=== PATIENT | female | born 1975 | race Caucasian/White ===

== ENCOUNTER 2017-09-14 10:19 | Emergency (ER) | payer OTHER ==
[~2017-09-14] VITALS: Ht 162.6 cm; Wt 94.8 kg
--- OUTSIDE RECORDS SUMMARY | ~2017-09-14 | XMS | Clinical Summary ---
Demographics + + + | Address | [address] | | | [place] [address] | + + + | Home Phone | | + + + | Preferred Language | Unknown | + + + | Marital Status | | + + + | Oriental Orthodox Affiliation | NON | + + + | Race | White | + + + | Ethnic Group | Unknown | + + + Author + + + | Organization | Unknown | + + + | Address | Unknown | + + + | Phone | Unavailable | + + + Care Team Providers + +------+ + | Care Baler Name | Role | Phone | + +------+ + PP | Unavailable | + +------+ + Source Comments ELLEN is fully live on both [facility] and [facility] Allergies Not on File Current Medications Not [...] | + + + + + | INFLUENZA VACCINE | | | | | (FLU SHOT) | 7 | | | + + + + + Results Not on filefrom Last 3 Months"
--- OUTSIDE RECORDS SUMMARY | ~2017-09-14 | XMS | Clinical Summary ---
Demographics + + + | Address | [address] | | | [place] [address] | + + + | Home Phone | | + + + | Preferred Language | Unknown | + + + | Marital Status | | + + + | Congregational Affiliation | NON | + + + | Race | White | + + + | Ethnic Group | Unknown | + + + Author + + + | Organization | Unknown | + + + | Address | Unknown | + + + | Phone | Unavailable | + + + Care Team Providers + +------+ + | Care Schedule Planning Manager Name | Role | Phone | + +------+ + PP | Unavailable | + +------+ + Source Comments ELLEN is fully live on both [facility] and [facility] InPatient.[facility]ly [facility] Allergies Not on [...]
[~2017-09-14 10:19] MED LIST: CIPRO500 MG PO; NUVIGIL250 MG PO; SUBOXONE 8 MG-1 EAC1 SL
[2017-09-14] MEDS ORDERED: ZOFRAN ODT4 MG PO (12:52)
[2017-09-14] MEDS ORDERED: FLOMAX0.4 MG PO (12:52)
[2017-09-14] MEDS ORDERED: IBUPROFEN600 MG PO (12:52)
== END 2017-09-14 13:32 | disposition home or self-care (01) ==
LOC: ED 10:19
DX: N20.1 Calculus of ureter (principal); F17.200 Nicotine dependence, unspecified, uncomplicated; Z88.5 Allergy status to narcotic agent; Z88.0 Allergy status to penicillin; Z88.1 Allergy status to other antibiotic agents; Z88.8 Allergy status to other drugs, medicaments and biological substances
CPT/HCPCS: 74176; 80053; 81001; 83690; 84703; 85025; 96374; 96375; 99284; J1885; J2405

== ENCOUNTER 2018-10-31 20:00 | Emergency (ER) | payer OTHER ==
[~2018-10-31] VITALS: Ht 162.6 cm; Wt 93.0 kg
--- OUTSIDE RECORDS SUMMARY | ~2018-10-31 | XMS | Clinical Summary ---
Demographics + + + | Address | [address] | | | [place] [address] | + + + | Home Phone | | + + + | Preferred Language | Unknown | + + + | Marital Status | | + + + | Buddhist Affiliation | NON | + + + | Race | White | + + + | Ethnic Group | Unknown | + + + Author + + + | Organization | Unknown | + + + | Address | Unknown | + + + | Phone | Unavailable | + + + Care Team Providers + +------+ + | Care Personal Companion Name | Role | Phone | + +------+ + PP | Unavailable | + +------+ + Source Comments ELLEN is fully live on both [facility]ulatory and [facility] InPatient.[facility]ly [facility] Allergies Not on File Current Medications Not on file Active Problems Not on file Social History + +-------+ +--------+------+ | Tobacco Use | Types | Packs/Day | Years | Date | | | | | Used | | + +-------+ +--------+------+ | Never Assessed | | | | | + +-------+ +--------+------+ + + + | Sex Assigned at | Date Recorded | | | | + + + | Not on file | | + + + Plan of Treatment + + + + + | Health Maintenance | Due Date | Last Done | Comments | + + + + + | Influenza (Flu) | | | | | vaccination (#1) | 8 | | | + + + + + Results Not on filefrom Last 3 Months"
--- OUTSIDE RECORDS SUMMARY | ~2018-10-31 | XMS | Clinical Summary ---
Demographics + + + | Address | [address] | | | [place] [address] | + + + | Home Phone | | + + + | Preferred Language | Unknown | + + + | Marital Status | | + + + | Moravian Affiliation | NON | + + + | Race | White | + + + | Ethnic Group | Unknown | + + + Author + + + | Organization | Unknown | + + + | Address | Unknown | + + + | Phone | Unavailable | + + + Care Team Providers + +------+ + | Care Inpatient Services Rn Name | Role | Phone | + +------+ + PP | Unavailable | + +------+ + Source Comments ELLEN is fully live on both [facility] Ambulatory and [facility] InPatient.[facility]ly [facility] & [facility] Allergies Not on File Current Medications Not [...]
--- OUTSIDE RECORDS SUMMARY | ~2018-10-31 | XMS | Clinical Summary ---
Demographics + + + | Address | [address] | | | [place] [address] | + + + | Home Phone | | + + + | Preferred Language | Unknown | + + + | Marital Status | Unknown | + + + | Scientologist Affiliation | Unknown | + + + | Race | Unknown | + + + | Ethnic Group | Unknown | + + + Author + + + | Author | [facility] | | | and [place] | + + + | Organization | [facility] | | | and [place] | + + + | Address | Unknown | + + + | Phone | Unavailable | + + + Care Team Providers + +------+ + | Care Bread Oven Operator Name | Role | Phone | + +------+ + PP | Unavailable | + +------+ + Allergies Not on File Current Medications Not [...] | + + + + + | Vaccine: | | | | | Dtap/Tdap/Td (1 - | 7 | | | | Tdap) | | | | + + + + + | Cervical Cancer | | | | | Screening (Pap) | 8 | | | + + + + + | Vaccine: Influenza | | | | | (#1) | 8 | | | + + + + + Results Not on filefrom Last 3 Months"
--- OUTSIDE RECORDS SUMMARY | ~2018-10-31 | XMS | Clinical Summary ---
Demographics + + + | Address | [address] | | | [place] [address] | + + + | Home Phone | | + + + | Preferred Language | Unknown | + + + | Marital Status | Unknown | + + + | Yarsanism Affiliation | Unknown | + + + | Race | Unknown | + + + | Ethnic Group | Unknown | + + + Author + + + | Author | [facility] | | | and [place] | + + + | Organization | [facility] | | | and [place] | + + + | Address | Unknown | + + + | Phone | Unavailable | + + + Care Team Providers + +------+ + | Care Director Of Housing And Energy Services Name | Role | Phone | + [...]
[~2018-10-31 20:00] MED LIST changes: +FLOMAX0.4 MG PO; +IBUPROFEN600 MG PO; +ZOFRAN ODT4 MG PO
--- OUTSIDE RECORDS SUMMARY | 2018-10-31 20:04 | XMS ---
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 Buddy VISIT COUNT (12 MO.) [address] [facility] TOTAL 1 NOTE: Visits indicate total known visits. ED/UCC VISIT TRACKING (12 MO.) 10/31/2018 20:01 [facility] [place] TYPE: Emergency COMPLAINT: - R LEG/ANKLE SWELLING INPATIENT VISIT TRACKING (12 MO.) No inpatient visits to display in this time frame [email or web address]
[2018-10-31] MEDS ORDERED: MACROBID 100 M100 MG PO (22:14)
[2018-10-31] MEDS ORDERED: MAXZIDE 37.5 MG-1 EA PO (22:14)
== END 2018-10-31 22:42 | disposition home or self-care (01) ==
LOC: ED 20:00
DX: R60.0 Localized edema (principal); N39.0 Urinary tract infection, site not specified; F32.9 Major depressive disorder, single episode, unspecified; Z87.891 Personal history of nicotine dependence; Z88.5 Allergy status to narcotic agent; Z88.1 Allergy status to other antibiotic agents; Z88.0 Allergy status to penicillin
CPT/HCPCS: 71046; 80053; 81001; 83880; 84443; 85025; 93971; 99285-25

== ENCOUNTER 2019-09-30 09:10 | Emergency (ER) | payer OTHER ==
[~2019-09-30] VITALS: Ht 162.6 cm; Wt 93.0 kg
[~2019-09-30 09:10] MED LIST changes: +MACROBID 100 M100 MG PO; +MAXZIDE 37.5 MG-1 EA PO
--- OUTSIDE RECORDS SUMMARY | 2019-09-30 09:14 | XMS ---
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 Buddy VISIT COUNT (12 MO.) 2 [facility] TOTAL 2 NOTE: Visits indicate total known visits. ED/UCC VISIT TRACKING (12 MO.) 09/30/2019 09:11 [facility] [place] TYPE: Emergency COMPLAINT: - CHEST PAIN, SOB, L ARM PAIN 10/31/2018 20:01 [facility] [place] TYPE: Emergency COMPLAINT: - R LEG/ANKLE SWELLING DIAGNOSES: - Urinary tract infection, site not specified - Allergy status to other antibiotic agents status - Allergy status to narcotic agent status - Major depressive disorder, single episode, unspecified - Allergy status to penicillin - Personal history of nicotine dependence - Localized edema INPATIENT VISIT TRACKING (12 MO.) No inpatient visits to display in this time frame [id number]
--- NOTE | 2019-09-30 09:51 | EKG ---
[facility] [address] [place] [address] Signed Normal sinus rhythm Right axis deviation Pulmonary disease pattern Incomplete right bundle branch block Abnormal ECG Confirmed by LUCIAN LAINEZ MD ([id number]) on 09/30/2019 9:51:49 AM Electronically Signed By: LUCIAN LAINEZ MD 09/30/19 0951 PATIENT NAME: JANN LEE Electrocardiogram DATE OF : 79 PHYSICIAN: LUCIAN LAINEZ MD REPORT #: [id number] REPORT IS CONFIDENTIAL AND NOT TO BE RELEASED WITHOUT AUTHORIZATION
== END 2019-09-30 13:46 | disposition home or self-care (01) ==
LOC: ED 09:10
DX: R07.9 Chest pain, unspecified (principal); F32.9 Major depressive disorder, single episode, unspecified; F17.200 Nicotine dependence, unspecified, uncomplicated; Z88.5 Allergy status to narcotic agent; Z88.8 Allergy status to other drugs, medicaments and biological substances; Z88.1 Allergy status to other antibiotic agents; Z88.0 Allergy status to penicillin; Z79.899 Other long term (current) drug therapy
CPT/HCPCS: 71045; 80053; 83735; 84484; 85025; 85379; 93005; 93010; 99285-25; 99406

== ENCOUNTER 2022-03-25 13:15 | Emergency (ER) | payer OTHER ==
[~2022-03-25] VITALS: Ht 162.6 cm; Wt 93.0 kg
--- NOTE | ~2022-03-25 | EKG ---
[facility] [address] [facility] [place], [place] [address] Draft EK completed, results pending confirmation PATIENT NAME: ROSAJANN Electrocardiogram DATE OF : 79 PHYSICIAN: PRELIMINARY REPORT #: [id number] REPORT IS CONFIDENTIAL AND NOT TO BE RELEASED WITHOUT AUTHORIZATION
--- OUTSIDE RECORDS SUMMARY | 2022-03-25 13:16 | XMS ---
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 Yuly has no Care Guidelines for this patient. Care History Medical/Surgical 10/03/2019 [facility] - W CALLED PATIENT- LEFT PATIENT A VOICEMAIL. - NO PCP LETTER SENT TO PATIENT. E.DClaudio VISIT COUNT (12 MO.) 1 [facility] TOTAL 1 NOTE: Visits indicate total known visits. ED/UCC VISIT TRACKING (12 MO.) 03/25/2022 13:[address] [facility] [place] TYPE: Emergency COMPLAINT: - CHEST PAIN INPATIENT VISIT TRACKING (12 MO.) No inpatient visits to display in this time frame [id number]
[2022-03-25] MEDS ORDERED: ARMODAFINIL250 MG PO (13:43)
[2022-03-25] MEDS ORDERED: FUROSEMIDE20 MG PO (13:43)
[2022-03-25] MEDS ORDERED: BUPRENORPHINE HC8 MG SL (13:43)
[2022-03-25] MEDS ORDERED: LAMOTRIGINE100 MG PO (13:44)
== END 2022-03-25 14:52 | disposition home or self-care (01) ==
LOC: ED 13:15
DX: R07.9 Chest pain, unspecified (principal); F17.200 Nicotine dependence, unspecified, uncomplicated; Z88.0 Allergy status to penicillin; Z88.5 Allergy status to narcotic agent; Z88.8 Allergy status to other drugs, medicaments and biological substances; Z79.899 Other long term (current) drug therapy
CPT/HCPCS: 36415; 71045; 80053; 83735; 84484; 85025; 85379; 93005; 93010; 99285-25

== ENCOUNTER 2024-03-11 17:44 | Emergency (ER) | payer OTHER ==
[~2024-03-11] VITALS: Ht 162.6 cm; Wt 105.6 kg
--- OUTSIDE RECORDS SUMMARY | ~2024-03-11 | XMS | Continuity of Care Document ---
Demographics + + + | Address | [address] | | | [place] [address] | + + + | Preferred Language | Unknown | + + + | Marital Status | Unknown | + + + | Hoahaoism Affiliation | Unknown | + + + | Race | White | + + + | Ethnic Group | Not or | + + + Author + + + | Author | [facility] | + + + | Organization | [facility] | + + + | Address | [address] | | | [place] [address] | + + + | Phone | | + + + Care Team Providers + + + + | Care Jewelry Salesperson Name | Role | Phone | + + + + Unavailable | Unavailable | + + + + Unavailable | Unavailable | + + + + Allergies No information. Encounters No information. Functional Status No information. Immunizations No information. Medications No information. Problems + + + + | date | description | facility | + + + + | 2023-12-18 14:27:13 | Endometriosis, unspecified | [facility] | | | | | + + + + | 2023-12-18 14:42:14 | Endometriosis, unspecified | [facility] | | | | | + + + + | 2024-02-02 05:43:12 | Endometriosis, unspecified | [facility] | | | | | + + + + | 2024-02-02 09:04:05 | Endometriosis, unspecified | [facility] | | | | | + + + + | 2024-02-04 10:04:43 | Endometriosis, unspecified | [facility] | | | | | + + + + | 2024-02-19 13:56:09 | Post-op | [facility] | + + + + Procedures No information. Results/Labs No information. Social History +--------+ + + | date | description | facility | +--------+ + + Vital Signs No information."
[~2024-03-11 17:44] MED LIST changes: +ARMODAFINIL250 MG PO; +BUPRENORPHINE HC8 MG SL; +FUROSEMIDE20 MG PO; +LAMOTRIGINE100 MG PO; +VENTOLIN HFA18 GM INH
--- OUTSIDE RECORDS SUMMARY | 2024-03-11 17:45 | XMS ---
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 Care History Medical/Surgical 10/03/2019 [facility] \R\- [facility] CALLED PATIENT- LEFT PATIENT A VOICEMAIL. \R\- NO PCP LETTER SENT TO PATIENT. EClaudioD. VISIT COUNT (12 MO.) [address] [place] [address] TOTAL 1 NOTE: Visits indicate total known visits. ED/UCC VISIT TRACKING (12 MO.) 03/11/2024 17:44 [facility] TYPE: Emergency COMPLAINT: - POST OP PROBLEMS INPATIENT VISIT TRACKING (12 MO.) 02/02/2024 09:04 [facility] [place] TYPE: Gynecology DIAGNOSES: - Endometriosis, unspecified [id number]
[2024-03-11 18:43] LABS: BASOPHILS 0.7 % (0-2); EOSINOPHILS 4.6 % (0-6); HEMATOCRIT 38.6 % (35.0-50.0); HEMOGLOBIN 12.9 g/dL (12.0-18.0); LYMPHOCYTES 24.1 % (24-44); MCHC 33.5 g/dl (30-36); MCV 86.6 fl (81-99); MONOCYTES 7.1 % (0-12); NEUTROPHILS 63.5 % (39-80); PLATELET COUNT 345 K/uL (140-440); RBC 4.46 M/ul (4.3-5.7)
[2024-03-11 18:58] LABS: ALBUMIN 3.5 g/dL (3.4-5.0); ALBUMIN/GLOBULIN RATIO 1.09 (1.1-2.4); ANION GAP 8.5 (7-21); BILIRUBIN, TOTAL 0.3 ng/dL (0.2-1.0); BUN/CREATININE RATIO 20.73 (6.0-28.6); CREATININE, SERUM 0.82 mg/dL (0.55-1.02); POTASSIUM 3.5 mmol/L (3.5-5.1); PROTEIN, TOTAL 6.7 g/dL (6.4-8.2)
[2024-03-11] MEDS ORDERED: BACTRIM DS TAB1 EACH PO (19:05)
[2024-03-11 19:15] VITALS: BP 116/78
== END 2024-03-11 19:15 | disposition home or self-care (01) ==
LOC: ED 17:44
PROVIDERS: Emergency Medicine
DX: L76.34 Postprocedural seroma of skin and subcutaneous tissue following other procedure (principal); F17.200 Nicotine dependence, unspecified, uncomplicated; Y83.8 Other surgical procedures as the cause of abnormal reaction of the patient, or of later complication, without mention of misadventure at the time of the procedure; Z88.5 Allergy status to narcotic agent; Z88.6 Allergy status to analgesic agent; Z88.0 Allergy status to penicillin; Z88.8 Allergy status to other drugs, medicaments and biological substances
CPT/HCPCS: 36415; 74177; 80053; 85025; 99284-25; Q9967